=== PATIENT | female | born 1990 | race Caucasian/White ===

== ENCOUNTER → 2017-06-21 | Outpatient (CLI) | payer BC ==
[2017-06-21 13:41] LABS: ALBUMIN 3.7 GM/DL (3.2-5.2); ALBUMIN/GLOBULIN RATIO 1.06 (1.00-1.93); ALKALINE PHOSPHATASE 63 U/L (45-117); ALT/SGPT 34 U/L (12-78); ANION GAP 9 MEQ/L (8-16); AST/SGOT 20 U/L (15-37); BILIRUBIN,TOTAL 0.4 MG/DL (0.2-1.0); BLOOD UREA NITROGEN 11 MG/DL (7-18); CALCIUM LEVEL 8.8 MG/DL (8.5-10.1); CARBON DIOXIDE LEVEL 25 MEQ/L (21-32); CHLORIDE LEVEL 106 MEQ/L (98-107); CREATININE FOR GFR 0.87 MG/DL (0.55-1.02); GLOMERULAR FILTRATION RATE > 60.0 (>60); GLUCOSE, FASTING 85 MG/DL (70-105); MAGNESIUM LEVEL 2.1 MG/DL (1.8-2.4); POTASSIUM SERUM 4.2 MEQ/L (3.5-5.1); SODIUM LEVEL 140 MEQ/L (136-145); TOTAL PROTEIN 7.2 GM/DL (6.4-8.2)
== END ==
LOC: M WUC 10:51
PROVIDERS: ATTEND Family Medicine
DX: E87.5 Hyperkalemia (principal)

== ENCOUNTER 2018-05-24 12:37 | Emergency (ER) | payer MEDICAID, SELFPAY, BC ==
[2018-05-24 13:26] LABS: BASO # 0.1 10^3/uL (0.0-0.2); BASO % 0.9 % (0.0-1.0); EOS # 0.6 10^3/uL (0.0-0.50); EOS % 6.3 % (0.0-3.0); HEMATOCRIT 43.6 % (36.0-47.0); HEMOGLOBIN 15.6 g/dl (12.0-15.5); IMMATURE GRANULOCYTE % 0.7 % (0-3.0); LYMPH # 1.7 10^3/uL (1.5-6.5); LYMPH % 16.4 % (24.0-44.0); MEAN CORPUSCULAR HEMOGLOBIN 32.2 pg (27.0-33.0); MEAN CORPUSCULAR HGB CONC 35.8 g/dl (32.0-36.5); MEAN CORPUSCULAR VOLUME 90.1 fl (80.0-96.0); MONO # 0.6 10^3/uL (0.0-0.8); MONO % 6.2 % (0.0-5.0); NEUTROPHILS % 69.5 % (36.0-66.0); RED BLOOD COUNT 4.84 10^6/uL (4.00-5.40); RED CELL DISTRIBUTION WIDTH 11.5 % (11.5-14.5); WHITE BLOOD COUNT 10.1 10^3/uL (4.0-10.0)
[2018-05-24 13:46] LABS: ANION GAP 14 MEQ/L (8-16); BLOOD UREA NITROGEN 16 MG/DL (7-18); CALCIUM LEVEL 9.5 MG/DL (8.5-10.1); CARBON DIOXIDE LEVEL 20 MEQ/L (21-32); CHLORIDE LEVEL 106 MEQ/L (98-107); CPK CREATINE PHOSPHOKINASE 181 U/L (26-192); CREATININE FOR GFR 1.17 MG/DL (0.55-1.30); GLOMERULAR FILTRATION RATE 59.1 (>60); GLUCOSE, FASTING 90 MG/DL (70-100); POTASSIUM SERUM 3.9 MEQ/L (3.5-5.1); SODIUM LEVEL 140 MEQ/L (136-145); TROPONIN I < 0.02 NG/ML (< 0.10)
[2018-05-24 13:47] LABS: CK-MB VALUE MASS < 1.0 NG/ML (<3.6); MB/CK RELATIVE INDEX 0.55 (< OR =4)
[2018-05-24 13:53] LABS: PLATELET COUNT, AUTOMATED 277 10^3/uL (150-450); POS COUNT POS FLAG
[2018-05-24 14:24] LABS: INR 0.91; PROTHROMBIN TIME 12.3 SECONDS (12.1-14.4)
[2018-05-24 14:27] LABS: D-DIMER QUANT 579.1 ng/ml (<500)
[2018-05-24] MEDS ORDERED: ISOVUE-370 76% 100ML VIAL (Q9967) As Ordered ×2 (14:39)
[2018-05-24 14:48] LABS: FREE T4 1.09 NG/DL (0.76-1.46); MAGNESIUM LEVEL 1.5 MG/DL (1.8-2.4); PHOSPHORUS LEVEL 1.1 MG/DL (2.5-4.9); THYROID STIMULATING HORMONE 0.836 uIU/ML (0.358-3.740)
[2018-05-24] MEDS: NITROGLYCERIN 0.4 MG SUBL TABLET SL ×2 (15:26)
[2018-05-24 19:48] LABS: CPK CREATINE PHOSPHOKINASE 364 U/L (26-192); MB/CK RELATIVE INDEX 1.64 (< OR =4); TROPONIN I < 0.02 NG/ML (< 0.10)
== END 2018-05-24 21:18 | disposition home or self-care (01) ==
LOC: M ED 12:37
DX: R07.9 Chest pain, unspecified (principal); R06.02 Shortness of breath; M79.661 Pain in right lower leg; M79.662 Pain in left lower leg; I10 Essential (primary) hypertension; I25.2 Old myocardial infarction; I47.1 Supraventricular tachycardia; Z77.098 Contact with and (suspected) exposure to other hazardous, chiefly nonmedicinal, chemicals
CPT/HCPCS: Q9967

== ENCOUNTER → 2018-09-17 | Outpatient (REF) | payer OTHER | LOC: M WUC 09:47 | DX: N30.01 Acute cystitis with hematuria (principal) ==

== ENCOUNTER → 2019-12-15 | Outpatient (REF) | payer BC ==
[~2019-12-15] MED LIST: LEVO0.1T PO; METO1TAB32 PO; NITR0.4S14 SL
== END ==
LOC: M PLALAB 15:52
PROVIDERS: ATTEND Obstetrics & Gynecology
DX: Z34.82 Encounter for supervision of other normal pregnancy, second trimester (principal); Z3A.27 27 weeks gestation of pregnancy
CPT/HCPCS: 36415; 86850; 86901; J2790

== ENCOUNTER 2020-02-06 13:20 | Outpatient (CLI) | payer BC ==
[~2020-02-06] VITALS: Ht 157.5 cm; Wt 89.9 kg
[2020-02-06 13:47] VITALS: BP 108/67
[2020-02-06] MEDS ORDERED: LACTATED RINGER'S 1000 ML IV ONE (14:00)
[2020-02-06] MEDS ORDERED: LR 1,000 ML IV SCH (14:00)
[2020-02-06 15:06] LABS: APPEARANCE, URINE CLEAR (CLEAR); BACTERIA, URINE AUTO 1+ (NEGATIVE); BILIRUBIN, URINE AUTO NEGATIVE (NEGATIVE); BLOOD, URINE BLOOD NEGATIVE (NEGATIVE); COLOR, URINE YELLOW (YELLOW); GLUCOSE, URINE (UA) AUTO NEGATIVE (NEGATIVE); KETONE, URINE AUTO TRACE mg/dL (NEGATIVE); LEUKOCYTE ESTERASE, URINE AUTO NEGATIVE (NEGATIVE); MUCUS, URINE SMALL (NEGATIVE); NITRITE, URINE AUTO NEGATIVE (NEGATIVE); PROTEIN, URINE AUTO NEGATIVE (NEGATIVE); RBC, URINE AUTO 1 /HPF (0-3); SPECIFIC GRAVITY URINE AUTO 1.013 (1.002-1.035); SQUAMOUS EPITHELIAL CELL UR AU 1 /HPF (0-6); UROBILINOGEN, URINE AUTO 0.2 mg/dL (0.0-2.0); WBC, URINE AUTO 1 /HPF (0-3)
[2020-02-06] MEDS ORDERED: NITROFURANTOIN (MACROBID) 100 MG CAP PO SCH (16:00)
== END 2020-02-06 18:10 | disposition home or self-care (01) ==
LOC: M LDO 13:20
PROVIDERS: ATTEND Advanced Practice Midwife
DX: O47.03 False labor before 37 completed weeks of gestation, third trimester (principal); O23.43 Unspecified infection of urinary tract in pregnancy, third trimester; Z3A.35 35 weeks gestation of pregnancy
CPT/HCPCS: 59025; 81001; 87086; G0378; G0463

== ENCOUNTER → 2020-02-06 | Outpatient (REF) | payer BC | LOC: M SFHCWAGY 16:55 | PROVIDERS: ATTEND Advanced Practice Midwife | DX: Z34.03 Encounter for supervision of normal first pregnancy, third trimester (principal) ==

== ENCOUNTER 2020-02-28 12:41 | Inpatient (IN) | payer BC ==
[~2020-02-28] VITALS: Ht 157.5 cm; Wt 91.7 kg
[2020-02-28] VITALS (32 sets, daily range): BP systolic 82–127; BP diastolic 45–72
[2020-02-28] MEDS ORDERED: OMEP10CASR PO (13:12)
[2020-02-28] MEDS ORDERED: L-LY500T14 PO (13:12)
[2020-02-28] MEDS ORDERED: PRENTAB9 PO (13:12)
[2020-02-28] MEDS ORDERED: PENICILLIN G POTASSIUM IV 5 MU in D5W MINI-BAG PLUS 100 ML IV STA (13:34)
[2020-02-28 14:14] LABS: HEMATOCRIT 40.8 % (36.0-47.0); HEMOGLOBIN 14.3 g/dl (12.0-15.5); MEAN CORPUSCULAR HEMOGLOBIN 31.8 pg (27.0-33.0); MEAN CORPUSCULAR VOLUME 90.7 fl (80.0-96.0); PLATELET COUNT, AUTOMATED 232 10^3/uL (150-450); WHITE BLOOD COUNT 11.7 10^3/uL (4.0-10.0)
[2020-02-28] MEDS ORDERED: fentaNYL 100 MCG/2 ML INJECTION (J3010) As Ordered ONE (16:01)
[2020-02-28] MEDS ORDERED: FENTANYL 2MCG/ML ROPIVACAINE 0.2% IN 0.9% NACL 100ML IVBAG As Ordered ONE (16:03)
[2020-02-28] MEDS ORDERED: diphenhydrAMINE 50MG/ML VIAL (J1200) IV PRN (17:15)
[2020-02-28] MEDS ORDERED: EPIDURAL/PCA KEYS XX PRN (17:15)
[2020-02-28] MEDS ORDERED: ePHEDrine SULFATE 25 MG/5 ML(5MG/ML) SYRINGE IV PRN (17:15)
[2020-02-28] MEDS ORDERED: REFRIGERATOR IV KEYS XX PRN (17:15)
[2020-02-28] MEDS ORDERED: EPIDURAL COMMENT XX SCH (17:15)
[2020-02-28] MEDS ORDERED: ONDANSETRON 4MG/2ML VIAL IV PRN (17:15)
[2020-02-28] MEDS ORDERED: NALOXONE INJ 0.4MG/1ML VIAL (J2310 PER 1MG) IV PRN (17:15)
[2020-02-28] MEDS ORDERED: FENTANYL/ROPIVACAINE/NACL BAG 100 ML EPIDURAL SCH (17:15)
[2020-02-28] MEDS ORDERED: LACTATED RINGER'S 1000 ML IV PRN (17:15)
--- NOTE | 2020-02-28 17:51 | HPEPDOC ---
Obstetrical History & Physical General Date of Admission February 28, 2020 at 13:29 History of Present Illness By her last history. Confirmed by first trimester ultrasound with complaints of leakage of fluid. She reports active movements. Denies any vaginal bleeding, has had some contractions. Her course is been unremarkable. 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 History: No pertinent history Past Medical History Surgical History: Denies/None Social History Marital Status: Family situation: Spouse/partner home Psychosocial History: No pertinent psych hx * Smoker: non-smoker Alcohol: Denies Drugs: denies Allergies Coded Allergies: No Known Allergies (Unverified , 05/24/18) Medications Scheduled Lysine (l-Lysine) 500 Mg Tablet, 1,000 MG PO DAILY Metoprolol Succinate (Metoprolol Succinate) 25 Mg Tab, 1 TAB PO DAILY Omeprazole (Omeprazole) 10 Mg Capsule.dr, 25 MG PO DAILY No.137/Iron/Folic Acd ( Vitamin Tablet) 1 Each Tablet, 1 TAB PO DAILY Physical Examination Physical Examination GENERAL: Alert and oriented times three. BREAST: . ABDOMEN: Gravid and non-tender to touch. FETUS: Is vertex (VTX) by sterile vaginal examination (SVE), fetus is vertex (VTX) by Derrell. HEART RATE: Regular rate and rhythm. LUNGS: Clear to auscultation (CTA). Vital Signs/I&O Vital Signs Date Time Temp Pulse Resp B/P (MAP) Pulse Ox O2 Delivery O2 Flow Rate FiO2 02/28/20 13:00 97.8 82 18 118/71 (87) Laboratory Data 24H LABS Laboratory Tests 2 02/28/20 13:54: Nucleated Red Blood Cells % (auto) 0.0 CBC/BMP Laboratory Tests 02/28/20 13:54 Pertinent Laboratoy Data Blood Type: O- RBC Antibody Screen: Negative HIV: Negative Hepatitis B: Negative Hepatitis C: Negative Rapid Plasma Reagin: Nonreactive Rubella: Immune Chlamydia/Gonorrhea: Negative Group B Streptococcus: Negative Glucose Tolerance Test: 100 Vaginal Examination Dilation: 3 cm Effacement: 80% Station: -2 Cervical Consistency: Soft Cervical Position: Anterior Presentation: Cephalic presentation Assessment Heart Rate (FHR): 130 Variability: Moderate Accelerations: Positive Tocometer Contractions: Yes Frequency: regular Assessment/Plan Assessment 29-year-old 1 at 38 weeks 3 days estimate gestational age with spontaneous rupture of membranes. Grossly ruptured. Reassuring status. -Admit to labor and delivery, CBC, RPR, type and screen -Patient is a good candidate for an epidural. -Anticipate spontaneous vaginal delivery Plan Admit and orient. Field Superintendent and consent. Group B Streptococcus (GBS) negative. Labs and intravenous (IV) per unit protocol. Anticipate normal spontaneous delivery (). C-S as appropriate. LUIS MARTINEZ MD. February 28, 2020 17:50
[2020-02-28] MEDS ORDERED: PENICILLIN G POTASSIUM IV 2.5 MU in IV 1 EA IV SCH (18:00)
[2020-02-28] MEDS ORDERED: OXYTOCIN 30 UNITS IN 0.9% NaCl 500ML IV BAG (J2590) As Ordered ONE (21:39)
[2020-02-29] VITALS (10 sets, daily range): BP systolic 101–132; BP diastolic 56–70
[2020-02-29] MEDS ORDERED: FENTANYL 2MCG/ML ROPIVACAINE 0.2% IN 0.9% NACL 100ML IVBAG As Ordered ONE (00:33)
--- NOTE | 2020-02-29 01:44 | IPNPDOC ---
Obstetrical Progress Note Date of Service February 29, 2020 Subjective 29-year-old 1, pushing for approximately 2 hours. There is no further descent. Currently category 1 heart rate tracing. Patient expressed motivation to continue to push. Her exam complete, complete and 0 station. Objective Vital Signs Date Time Temp Pulse Resp B/P (MAP) Pulse Ox O2 Delivery O2 Flow Rate FiO2 02/29/20 01:24 96.9 02/28/20 22:36 93 19 107/57 (74) Sterile Vaginal Examination Dilation: complete Effacement (%): 100% Station: +1 Assessment and Plan Age: 29 : 1 Status: Reassuring Anticipate: Other (plan to reevaluate patient 1 hour. Plan to proceed with the section. There is no further descent for arrested descent.) LUIS MARTINEZ MD. February 29, 2020 01:44
[2020-02-29] MEDS ORDERED: AZITHROMYCIN INJ 500MG VIAL (J0456 PER 500MG) As Ordered ONE (01:57)
[2020-02-29] MEDS ORDERED: BICITRA 30ML SOLN UDC As Ordered ONE (01:57)
[2020-02-29] MEDS ORDERED: ceFAZolin 2 GM/D5W 50 ML IV BAG (J0690 PER 500MG) As Ordered ONE (01:57)
[2020-02-29] MEDS ORDERED: AZITHROMYCIN INJ 500 MG, VIAL MATE ADAPTER 1 EACH in D5W 250 ML IV ONE (02:00)
[2020-02-29] MEDS ORDERED: ceFAZolin SOD 2 GM in IV 1 EA IV ONE (02:00)
[2020-02-29] MEDS ORDERED: BICITRA 30ML SOLN UDC PO ONE (02:00)
[2020-02-29] MEDS ORDERED: LIDOCAINE 2% W/EPIN INJ 20ML **PRES FREE As Ordered ONE (02:15)
[2020-02-29] MEDS ORDERED: fentaNYL 100 MCG/2 ML INJECTION (J3010) As Ordered ONE (02:17)
[2020-02-29] MEDS ORDERED: OXYTOCIN INJ 10 UNITS/ML VIAL (J2590) As Ordered ONE (02:17)
[2020-02-29] MEDS ORDERED: ONDANSETRON 4MG/2ML VIAL As Ordered ONE (02:20)
[2020-02-29] MEDS ORDERED: PHENYLephrine HCL 500 MCG/5 ML (100MCG/ML) SYRINGE (J2370) As Ordered ONE (02:44)
[2020-02-29] MEDS ORDERED: NALOXONE INJ 0.4MG/1ML VIAL (J2310 PER 1MG) IV PRN ×2 (03:25)
[2020-02-29] MEDS ORDERED: METOCLOPRAMIDE INJ 10MG/2ML VIAL (J2765 PER 1) IV PRN ×2 (03:25→04:00)
[2020-02-29] MEDS ORDERED: NALBUPHINE HCL 10 MG/ML AMP (J2300) IV PRN ×2 (03:25→04:00)
[2020-02-29] MEDS ORDERED: ONDANSETRON 4MG/2ML VIAL IV PRN ×3 (03:25→04:00)
[2020-02-29] MEDS ORDERED: diphenhydrAMINE 50MG/ML VIAL (J1200) IV PRN (03:25)
[2020-02-29] MEDS ORDERED: OXYTOCIN DRIP 30 UNITS in IV 1 EA IV SCH (03:35)
[2020-02-29] MEDS ORDERED: LR 1,000 ML IV SCH ×2 (03:35→04:00)
[2020-02-29] MEDS ORDERED: RHOGAM 300 MCG (1500 IU) INJ (J2790) IM SCH (03:45)
[2020-02-29] MEDS ORDERED: MEASLES,MUMPS,RUBELLA VACCINE INJ (MMR-II) (90707) SC SCH (03:45)
[2020-02-29] MEDS ORDERED: MOM 30ML SUSPENSION UDC PO PRN (03:45)
[2020-02-29] MEDS ORDERED: PERCOCET 5MG/325MG TAB PO PRN ×3 (03:45→04:00)
--- NOTE | 2020-02-29 03:46 | ROOPDOC ---
[facility] Report Of Operation Report of Operation DATE OF PROCEDURE: 02/29/20 SURGEON: Patsy Cornell M.D. TUBE CLEANING OPERATOR: Leonora Stewart CNM ANESTHESIA: Epidural PREOPERATIVE DIAGNOSIS:, Arrest of descent DIAGNOSIS: Arrested descent ESTIMATED BLOOD LOSS: 600 mL URINE OUTPUT: 100 mL INTRAVENOUS FLUIDS: 1700 mL PREOPERATIVE ANTIBIOTICS:. 2 g of Ancef and 500 mg of azithromycin OPERATIVE FINDINGS: Liveborn female infant, Apgars 8 and 9. Weight was 3350 g, 7 lbs. 6 oz. SPECIMENS:. Cord blood INDICATIONS FOR PROCEDURE: This patient is a 29-year-old 1, para 0 who presented in active labor. She progressed and began pushing at complete, complete, -1 station. She pushed for over 2 hours, had made minimal descent, was counseled for section for arrested descent DESCRIPTION OF PROCEDURE: After informed consent was obtained and written consent was reviewed. The patient was brought to the operating room where. She was then placed in the supine position with a left lateral tilt. Leyva catheter was placed and to gravity previously. Patient was then prepped and draped in the normal sterile fashion. A timeout operating room was performed identifying the patient, procedure be performed as well as drug allergies. Anesthesia was tested and deemed to be adequate. Pfannenstiel skin incision was made and this was carried down to the underlying rectus fascia. The fascia was then scored and this incision was extended bilaterally. The fascia was then dissected off the underlying rectus muscle superiorly and inferiorly. The rectus muscles were then in the midline. The peritoneum is then entered. Vesicouterine peritoneum was then tented and excised and a bladder flap was created. Mobius retractor was then placed. Next, a curvilinear incision was then made in the lower uterine segment. Amniotomy was performed, productive, clear fluid. The head was brought to the level of the incision atraumatically and delivered along the shoulders and corpus. The cord was clamped 2. The was brought over to the warmer with a good cry. Placenta was drained and delivered grossly intact. The uterus was cleared of all clots and debris and the uterine incision was then closed in 2 layers using 0 Vicryl, first in a running locking fashion followed by second layer for imbrication. The abdomen suctioned. Surgical sites reinspected and noted be hemostatic. The retractor was then removed. The anterior peritoneum was then reapproximated with 3-0 Vicryl. The rectus muscles were reapproximated 3-0 Vicryl. The fascia was then closed using 0 Vicryl in a running nonlocking fashion. The subcutaneous tissues was then irrigated and suctioned. Subcutaneous tissue was reapproximated using 3-0 Vicryl. Several subdermal stitch is placed using 3-0 Vicryl and the skin was closed with 4-0 Monocryl. This incision was then cleaned and dried and was dressed. The patient was then taken to recovery in stable condition. All counts were correct. The couple has decided to name the daughter, Renee My surgical supplies sterilizer Leonora Stewart played in an essential roll during the operation. They assisted with tissue identification retraction, delivery of the , as well as wound closure. PATSY CORNELL MD. February 29, 2020 03:46
[2020-02-29] MEDS ORDERED: fentaNYL 100 MCG/2 ML INJECTION (J3010) IV PRN (04:00)
[2020-02-29] MEDS: MEPERIDINE INJ 25 MG/ML VIAL (J2175) IV PRN ×2 (04:02→04:08)
[2020-02-29] MEDS ORDERED: MEPERIDINE INJ 25 MG/ML VIAL (J2175) As Ordered ONE (04:02)
[2020-02-29] MEDS ORDERED: OXYTOCIN 30 UNITS IN 0.9% NaCl 500ML IV BAG (J2590) As Ordered ONE (04:15)
[2020-02-29] MEDS ORDERED: KETOROLAC 30 MG/ML 1ML VIAL As Ordered ONE (04:21)
[2020-02-29] MEDS: KETOROLAC 30 MG/ML 1ML VIAL IV SCH ×3 (04:24→16:18)
[2020-02-29] MEDS: DOCUSATE SODIUM 100 MG CAP PO SCH ×2 (08:30→20:11)
[2020-02-29] MEDS: PRENATAL VITAMINS CHEWABLE TABLET PO SCH (08:30)
[2020-02-29] MEDS: IBUPROFEN 800 MG TAB PO SCH (23:04)
[2020-03-01 02:00] VITALS: BP 111/56
[2020-03-01 06:28] VITALS: BP 116/58
[2020-03-01] MEDS ORDERED: IBUP80TA PO (07:08)
[2020-03-01] MEDS ORDERED: PERCOCET PO (07:08)
[2020-03-01] MEDS: DOCUSATE SODIUM 100 MG CAP PO SCH ×2 (07:36→21:28)
[2020-03-01] MEDS: PRENATAL VITAMINS CHEWABLE TABLET PO SCH (07:36)
[2020-03-01] MEDS: IBUPROFEN 800 MG TAB PO SCH ×2 (07:37→15:38)
[2020-03-01 07:52] LABS: HEMATOCRIT 29.4 % (36.0-47.0); MEAN CORPUSCULAR HEMOGLOBIN 32.6 pg (27.0-33.0); MEAN CORPUSCULAR HGB CONC 34.7 g/dl (32.0-36.5); MEAN CORPUSCULAR VOLUME 93.9 fl (80.0-96.0); PLATELET COUNT, AUTOMATED 177 10^3/uL (150-450); RED BLOOD COUNT 3.13 10^6/uL (4.00-5.40); WHITE BLOOD COUNT 13.2 10^3/uL (4.0-10.0)
--- NOTE | 2020-03-01 07:54 | IPNPDOC ---
Progress Note Date of Service: March 01, 2020 Day#: 1 Progress Note SUBJECT: Doing well without complaints. Ambulating, voiding and pain is well-c ontrolled. Reports minimal lochia. +breast feeding OBJECTIVE: VITAL SIGNS: Within normal limits, afebrile. Alert and oriented times three. Abdomen: Fundus firm at U-2. Soft, NTTP. Incision: Clean, dry, intact dressed Ext: neg calf tenderness. ASSESSMENT: day/postoperative #1 status post primary section for arrested descent. Recovering in stable condition. PLAN: 1. Continue routine care/postoperative care 2. Discharge plans for tomorrow VS, I&O, 24H, Fishbone Vital Signs/I&O Vital Signs Date Time Temp Pulse Resp B/P (MAP) Pulse Ox O2 Delivery O2 Flow Rate FiO2 03/01/20 06:28 98.0 87 16 116/58 (77) 03/01/20 02:00 100 Room Air I&O- Last 24 Hours up to 6 AM 03/01/20 06:00 Intake Total 100 ml Output Total 1300 ml Balance -1200 ml Laboratory Data 24H LABS Laboratory Tests 2 03/01/20 01:23: Serology Scanned Report Hepatitis B Testing CBC/BMP LUIS MARTINEZ MD. March 01, 2020 07:54
[2020-03-01 08:02] LABS: HEMOGLOBIN 10.2 g/dl (12.0-15.5)
[2020-03-01 10:16] VITALS: BP 93/54
[2020-03-01 14:02] VITALS: BP 98/66
[2020-03-01 17:36] VITALS: BP 106/69
[2020-03-02] MEDS: IBUPROFEN 800 MG TAB PO SCH ×2 (00:25→08:09)
[2020-03-02] MEDS: ONDANSETRON 4 MG TAB PO PRN ×2 (03:14→08:59)
[2020-03-02 06:00] VITALS: BP 110/68
[2020-03-02] MEDS: PRENATAL VITAMINS CHEWABLE TABLET PO SCH (08:09)
[2020-03-02] MEDS: DOCUSATE SODIUM 100 MG CAP PO SCH (08:09)
[2020-03-02] MEDS ORDERED: ONDA-83 PO (10:41)
== END 2020-03-02 12:40 | disposition home or self-care (01) | DRG 540 ==
LOC: M LDO 12:41 → M LDI 13:29 → M OBS 02-29 05:26
PROVIDERS: ADMIT Obstetrics & Gynecology; ATTEND Obstetrics & Gynecology
PROC: 10D00Z1 Extraction of Products of Conception, Low, Open Approach (ICD-10-PCS; principal; 2020-02-29 03:06)
DX: O32.4XX0 Maternal care for high head at term, not applicable or unspecified (principal); Z37.0 Single live birth; Z3A.39 39 weeks gestation of pregnancy

== ENCOUNTER → 2020-10-04 | Outpatient (CLI) | payer BC ==
[~2020-10-04] MED LIST changes: +IBUP80TA PO; +L-LY500T14 PO; +OMEP10CASR PO; +ONDA-83 PO; +PERCOCET PO; +PRENTAB9 PO
[2020-10-04 17:10] LABS: BASO # 0.1 10^3/uL (0.0-0.2); BASO % 0.6 % (0.0-1.0); EOS # 0.5 10^3/uL (0.0-0.5); EOS % 6.2 % (0.0-3.0); HEMATOCRIT 38.9 % (36.0-47.0); HEMOGLOBIN 12.9 g/dl (12.0-15.5); LYMPH # 1.4 10^3/uL (1.5-5.0); LYMPH % 16.6 % (24.0-44.0); MEAN CORPUSCULAR HEMOGLOBIN 30.5 pg (27.0-33.0); MEAN CORPUSCULAR HGB CONC 33.2 g/dl (32.0-36.5); MONO # 0.5 10^3/uL (0.0-0.8); MONO % 6.2 % (0.0-5.0); NEUTROPHILS # 5.8 10^3/uL (1.5-8.5); PLATELET COUNT, AUTOMATED 253 10^3/uL (150-450); RED BLOOD COUNT 4.23 10^6/uL (4.00-5.40); WHITE BLOOD COUNT 8.2 10^3/uL (4.0-10.0)
[2020-10-04 18:19] LABS: HEPATITIS C VIRUS ABY INDEX 0.1 INDEX (<0.8); HIV 1&2 SCREEN CENTAUR NEGATIVE (NEGATIVE)
== END ==
LOC: M PLALAB 15:32
PROVIDERS: ATTEND Advanced Practice Midwife
DX: Z34.81 Encounter for supervision of other normal pregnancy, first trimester (principal); I47.1 Supraventricular tachycardia

== ENCOUNTER → 2020-10-18 | Outpatient (CLI) | payer BC ==
--- NOTE | 2020-10-18 15:10 | REP ---
INDICATION: O46.8X2 OTHER ANTEPARTUM HEMORRHAGE,SECOND TRIMESTER COMPARISON: None. TECHNIQUE: Transabdominal obstetrical ultrasound with color Doppler evaluation. FINDINGS: Examination demonstrates a single live intrauterine . motion is identified by technologist. Placenta is noted anteriorly and grade 0 without evidence for placenta previa or abruption. Amniotic fluid volume is normal. Cervix measures 3.1 cm in length and appears closed. Gestational age by LMP 14 weeks 3 days with DINORAH 04/15/2021. FHR equals 158 beats per minute. IMPRESSION: Single live intrauterine . <Electronically signed by Joni Tay > 10/18/20 [id number]
== END ==
LOC: M WHC 14:28
PROVIDERS: ATTEND Advanced Practice Midwife
DX: O41.8X20 Other specified disorders of amniotic fluid and membranes, second trimester, not applicable or unspecified (principal); O46.8X2 Other antepartum hemorrhage, second trimester; Z3A.14 14 weeks gestation of pregnancy

== ENCOUNTER → 2020-12-20 | Outpatient (CLI) | payer BC ==
--- NOTE | 2020-12-20 17:01 | REP ---
INDICATION: ANATOMY COMPARISON: 10/18/2020 TECHNIQUE: Transabdominal obstetrical ultrasound with color Doppler evaluation. FINDINGS: Examination demonstrates a single live intrauterine in cephalic presentation. motion is identified by technologist. Placenta is noted anterior and grade 0 without evidence for placenta previa or abruption. Amniotic fluid volume is normal. Cervix measures 3.2 cm in length and appears closed. There is eccentric insertion of the placental cord noted. Gestational age by LMP and 1st ultrasound 23 weeks 3 days with DINORAH 04/15/2021. Gestational age by current measurements 24 weeks 3 days with DINORAH 04/08/2021. FHR equals 158 beats per minute. BPD: 5.8 cm at there is 23 weeks 6 days HC: 22.1 cm at 24 weeks 1 day AC: 21.2 cm at 25 weeks 5 days FL: 4.3 cm at 24 weeks 1 day HL: 4.1 cm at 24 weeks 4 days HC/AC: 1.04 Estimated weight 747 grams (greater than 97th percentile based on age by LMP and 1st ultrasound). Anatomical assessment demonstrates normal structures including cranium, choroid plexus, cavum, cerebellum/posterior fossa, facial features, lungs, four-chamber heart/ventricular outflow tracts, diaphragm, stomach, cord insertion/three-vessel cord, kidneys/bladder, spine, and extremities. IMPRESSION: 1. Single live intrauterine in cephalic presentation. 2. Estimated weight beyond 97th percentile based on age by LMP and 1st ultrasound. 3. Eccentric cord insertion to the placenta. 4. anatomical assessment is complete and normal. <Electronically signed by Joni Tay > 12/20/20 [id number]
== END ==
LOC: M WHC 14:52
PROVIDERS: ATTEND Advanced Practice Midwife
DX: O34.211 Maternal care for low transverse scar from previous cesarean delivery (principal); Z3A.23 23 weeks gestation of pregnancy

== ENCOUNTER → 2021-01-13 | Outpatient (REF) | payer BC ==
[2021-01-13 17:27] LABS: HEMATOCRIT 36.3 % (36.0-47.0); HEMOGLOBIN 12.4 g/dl (12.0-15.5); MEAN CORPUSCULAR HEMOGLOBIN 32.7 pg (27.0-33.0); MEAN CORPUSCULAR HGB CONC 34.2 g/dl (32.0-36.5); MEAN CORPUSCULAR VOLUME 95.8 fl (80.0-96.0); PLATELET COUNT, AUTOMATED 220 10^3/uL (150-450); RED BLOOD COUNT 3.79 10^6/uL (4.00-5.40); WHITE BLOOD COUNT 9.1 10^3/uL (4.0-10.0)
== END ==
LOC: M PLALAB 13:20
PROVIDERS: ATTEND Advanced Practice Midwife
DX: O34.211 Maternal care for low transverse scar from previous cesarean delivery (principal)

== ENCOUNTER → 2021-02-10 | Outpatient (REF) | payer BC | LOC: M PLALAB 17:14 | PROVIDERS: ATTEND Advanced Practice Midwife | DX: O34.211 Maternal care for low transverse scar from previous cesarean delivery (principal) ==

== ENCOUNTER → 2021-02-22 | Outpatient (CLI) | payer BC | LOC: M WHC 13:29 | PROVIDERS: ATTEND Obstetrics & Gynecology | DX: O26.849 Uterine size-date discrepancy, unspecified trimester (principal) ==

== ENCOUNTER → 2021-03-10 | Outpatient (REF) | payer BC ==
[~2021-03-10] MED LIST changes: +ACET-897 PO; +LABE100T4 PO; +OMEP1CAP73 PO; +VALT500T PO; +[UNRECOGNIZED DRUG - CODE] PO
== END ==
LOC: M SFHCWAGY 09:52
PROVIDERS: ATTEND Advanced Practice Midwife
DX: Z34.93 Encounter for supervision of normal pregnancy, unspecified, third trimester (principal); Z3A.35 35 weeks gestation of pregnancy

== ENCOUNTER 2021-03-16 21:14 | Inpatient (IN) | payer BC ==
[~2021-03-16] VITALS: Ht 172.7 cm; Wt 92.3 kg
[~2021-03-16 21:14] MED LIST changes: -ACET-897 PO; +KETOROLAC 30 MG/ML 1ML VIAL IV SCH; -LABE100T4 PO; -OMEP1CAP73 PO; -VALT500T PO; -[UNRECOGNIZED DRUG - CODE] PO
[2021-03-16] MEDS ORDERED: LACTATED RINGER'S 1000 ML IV STA (21:35)
[2021-03-16] MEDS ORDERED: AZITHROMYCIN INJ 500 MG, VIAL MATE ADAPTER 1 EACH in NS 250 ML IV ONE (21:35)
[2021-03-16] MEDS ORDERED: LR 1,000 ML IV SCH ×3 (21:35→23:20)
[2021-03-16] MEDS ORDERED: ceFAZolin SOD 2 GM in IV 1 EA IV ONE (21:35)
[2021-03-16] MEDS ORDERED: BICITRA 30ML SOLN UDC PO ONE (21:35)
[2021-03-16] MEDS ORDERED: BETAMETHASONE SOLUSPAN 6MG/ML 5ML VIAL (J0702 PER 3MG) IM ONE (21:45)
[2021-03-16] MEDS ORDERED: OXYTOCIN 30 UNITS IN 0.9% NaCl 500ML IV BAG (J2590) As Ordered ONE ×2 (21:49→23:28)
[2021-03-16] MEDS ORDERED: MORPHINE PRES-FREE INJ 10 MG/10 ML VIAL (J2274) As Ordered ONE (21:49)
[2021-03-16] MEDS ORDERED: ePHEDrine SULFATE 25 MG/5 ML(5MG/ML) SYRINGE As Ordered ONE ×2 (21:49→22:23)
[2021-03-16 21:51] LABS: HEMATOCRIT 38.8 % (36.0-47.0); HEMOGLOBIN 13.7 g/dl (12.0-15.5); MEAN CORPUSCULAR HEMOGLOBIN 32.2 pg (27.0-33.0); MEAN CORPUSCULAR HGB CONC 35.3 g/dl (32.0-36.5); MEAN CORPUSCULAR VOLUME 91.3 fl (80.0-96.0); PLATELET COUNT, AUTOMATED 211 10^3/uL (150-450); RED BLOOD COUNT 4.25 10^6/uL (4.00-5.40); WHITE BLOOD COUNT 12.3 10^3/uL (4.0-10.0)
[2021-03-16] MEDS ORDERED: NALOXONE INJ 0.4MG/1ML VIAL (J2310 PER 1MG) IV PRN ×2 (22:16)
[2021-03-16] MEDS ORDERED: METOCLOPRAMIDE INJ 10MG/2ML VIAL (J2765 PER 1) IV PRN (22:16)
[2021-03-16] MEDS ORDERED: NALBUPHINE HCL 10 MG/ML AMP (J2300) IV PRN (22:16)
[2021-03-16] MEDS ORDERED: ONDANSETRON 4MG/2ML VIAL IV PRN ×2 (22:16→23:15)
[2021-03-16] MEDS ORDERED: PHENYLephrine 500MCG 5ML (100MCG/ML) SYRINGE As Ordered ONE ×2 (22:21→22:24)
[2021-03-16] MEDS ORDERED: ONDANSETRON 4MG/2ML VIAL As Ordered ONE (22:26)
[2021-03-16] MEDS ORDERED: METOCLOPRAMIDE INJ 10MG/2ML VIAL (J2765 PER 1) As Ordered ONE (22:26)
[2021-03-16] MEDS ORDERED: KETOROLAC 60MG 2ML VIAL As Ordered ONE (22:49)
--- NOTE | 2021-03-16 23:01 | HPE ---
HISTORY AND PHYSICAL DATE OF ADMISSION: 03/16/2021 HISTORY OF PRESENT ILLNESS: Nely is a 30-year-old, 2, para 1-0-0-1 at 35 and 6/7 weeks gestation, EDC of 04/14/2021 based on last menstrual period and confirmed by first trimester ultrasound. She presents to labor and delivery today with report of contractions that started earlier in the day and have become progressively more uncomfortable and close together. She reports them every 4 minutes. Denies vaginal bleeding or leakage of fluid. The fetus has been active. Her care was initiated at [facility] in the first trimester. course complicated by paroxysmal supraventricular tachycardia. She does take Labetalol 100 mg b.i.d. She has a history of a prior section for arrest of decent with planned repeat section. migraine headaches, HSV oral. PAST OBSTETRIC HISTORY: February 2020; 38 and 4/7 weeks, 7 pounds and 6 ounce female, section due to OP presentation and arrest of decent. OBSTETRIC LABS: O negative. Antibody screen negative. Syphilis negative. Gonorrhea and Chlamydia negative. Hepatitis B negative. Hepatitis C negative. Rubella immune. Urine culture negative. GBS negative. Gestational diabetic screening normal. PAST MEDICAL HISTORY: Includes tachycardia, hypertension, benign PCOS and oral herpes. PAST SURGICAL HISTORY: section. FAMILY HISTORY: Bladder cancer and heart disease. SOCIAL HISTORY: She is a nonsmoker, denies alcohol and drug use. Denies history of STDs. Denies history of abuse; physical, sexual and emotional. ALLERGIES: Bee venom causes anaphylaxis. OBJECTIVE: VITAL SIGNS: Blood pressure 110/70, heart rate 150 with moderate variability, positive accelerations, negative decelerations. Contractions every 2 minutes, they do palpate strong. STERILE VAGINAL EXAM: 4 cm dilated, 80% effaced, -2 station. bulging bag of water. Temperature 97.9, pulse 75, respirations 18. ASSESSMENT: Intrauterine at 35 and 6/7 weeks. heart rate care growing while in active labor. PLAN: Admit the patient to labor and delivery. Routine laboratories. I.V. antibiotics for surgical prophylaxis. Patient has been consented for surgery and blood products if they are necessary. Dr. Huertas notified and present in the hospital. Anesthesia as well as neonatology notified. MELITA
[2021-03-16] MEDS ORDERED: MEPERIDINE INJ 25 MG/ML VIAL (J2175) IV PRN (23:15)
[2021-03-16] MEDS ORDERED: fentaNYL 100 MCG/2 ML INJECTION (J3010) IV PRN (23:15)
[2021-03-16] MEDS ORDERED: RHOGAM 300 MCG (1500 IU) INJ (J2790) IM SCH (23:20)
[2021-03-16] MEDS ORDERED: MEASLES,MUMPS,RUBELLA VACCINE INJ (MMR-II) (90707) SC SCH (23:20)
[2021-03-16] MEDS ORDERED: PERCOCET 5MG/325MG TAB PO PRN ×2 (23:20)
[2021-03-16] MEDS ORDERED: OXYTOCIN DRIP 30 UNITS in IV 1 EA IV SCH (23:20)
[2021-03-16] MEDS ORDERED: MOM 30ML SUSPENSION UDC PO PRN (23:20)
[2021-03-16] MEDS ORDERED: SIMETHICONE 80MG CHEW TAB PO PRN (23:20)
[2021-03-17] VITALS (9 sets, daily range): BP systolic 94–120; BP diastolic 48–70
[2021-03-17] MEDS: diphenhydrAMINE 50MG/ML VIAL (J1200) IV PRN ×2 (01:24→05:24)
--- NOTE | 2021-03-17 02:14 | CR.PDOC ---
General Date of Consultation: March 17, 2021 Consultation REASON FOR CONSULTATION/CHIEF COMPLAINT: Unresponsive HISTORY OF PRESENT ILLNESS: 30-year-old female with a past medical history of SVT, delivered via at 35 weeks on 03/16/21. Patient was found to be unresponsive for total period of 4 minutes divided increments of 2 minutes. P atient's vitals remained stable. Was called by Dr. Krishnamurthy from the department of anesthesia to consult on the patient. Patient has no memory of the events other than the sternal rub, she experienced to be woken up. Patient states that these episodes have been happening since last July and has been worked up extensively at [facility] neurology. Since then the patient has an followed by cardiology in [place] minutes completed a Holter study. She has an appointment coming up in April with an costume specialist. At the time of examination, patient is alert and oriented 3, is not expressing any chest pain, shortness of breath, palpitations, nausea, vomiting, diarrhea. ALLERGIES: Please see below. HOME MEDICATIONS: Please see below. PAST MEDICAL HISTORY: SVT HYPERTENSION, BENIGN POLYCYSTIC OVARIES HSV II PAST SURGICAL HISTORY: section x 2 FAMILY HISTORY: FATHER: HEART DISEASE MATERNAL GRAND MOTHER: BLADDER CANCER HORMONE BASED SEIZURES, HEART DISEASE SOCIAL HISTORY: Patient denies smoking Patient denies etoh use Patient denies illicit drug use REVIEW OF SYSTEMS: 10 point ROS completed, relevant findings are noted in the HPI. PHYSICAL EXAMINATION: VITAL SIGNS: please see below General: NAD, comfortable HEENT: PERRLA, EOMI, sclerae clear Neck: supple, normal ROM, no JVD Respiratory: lungs CTAB, no wheeze, no rales, no crackles CVS: RRR, normal S1, S2, no murmurs Abdo: soft, no masses, no hepatosplenomegaly, BS+, no rebound tenderness Extremities: no edema, pulses 2+ MSK: no joint deformities, normal ROM Neuro: no focal neuro deficits, moving all 4 extremities, CN2-12 intact. Strength 5/5 in all 4 extremities. No nystagmus. Psych: calm, cooperative, AAO x 3 LABORATORY DATA: Please see below. ASSESSMENT/PLAN: SVT: Continue with home labetalol 100 mg twice a day. Follows with cardiology in [place], [place]. Continue with telemetry. Check TSH, trop, BNP. AMS: It is possible the patient is experiencing a form of seizure possibly petit mal. Ordered EEG. Did not check prolactin as likely confounded by . She is alert and oriented this time, at baseline. Does not wish for CT of the head to be done. Has had extensive workup at [facility] neurology. Thank you for the consult. Hospitalist service will continue to follow. Vital Signs/I&O Vital Signs Date Time Temp Pulse Resp B/P (MAP) Pulse Ox O2 Delivery O2 Flow Rate FiO2 03/17/21 00:55 96.3 80 22 104/48 (66) 99 Room Air I&O- Last 24 Hours up to 6 AM 03/17/21 06:00 Output Total 600 ml Balance -600 ml Laboratory Data Labs 24H Laboratory Tests 2 03/16/21 21:42: Nucleated Red Blood Cells % (auto) 0.0 03/16/21 21:54: Serology Scanned Report Hepatitis B Testing CBC/BMP Laboratory Tests 03/16/21 21:42 Allergies Coded Allergies: No Known Allergies (Unverified , 05/24/18) Home Medications Scheduled Labetalol HCl (Labetalol HCl) 100 Mg Tablet, 50 MG PO BID, (Reported) Lysine (Lysine) 1,000 Mg Tablet, 1,000 MG PO QHS, (Reported) Omeprazole (Omeprazole) 20 Mg Capsule.dr, 20 MG PO QHS, (Reported) No.137/Iron/Folic Acd ( Vitamin Tablet) 1 Each Tablet, 1 TAB PO QHS, (Reported) Scheduled PRN Acetaminophen (Tylenol Extra Strength) 500 Mg Tablet, 1,000 MG PO Q6H PRN for PAIN, (Reported) Valacyclovir HCl (Valtrex) 500 Mg Tablet, 500 MG PO DAILY PRN for COLD SORES, (Reported) SAM ESCALANTE MD March 17, 2021 02:14
[2021-03-17 05:20] LABS: BASO # 0.1 10^3/uL (0.0-0.2); BASO % 0.4 % (0.0-1.0); EOS # 0.5 10^3/uL (0.0-0.5); EOS % 3.3 % (0.0-3.0); HEMATOCRIT 32.3 % (36.0-47.0); LYMPH # 1.7 10^3/uL (1.5-5.0); LYMPH % 11.9 % (24.0-44.0); MEAN CORPUSCULAR HEMOGLOBIN 32.9 pg (27.0-33.0); MEAN CORPUSCULAR HGB CONC 35.3 g/dl (32.0-36.5); MEAN CORPUSCULAR VOLUME 93.4 fl (80.0-96.0); MONO # 1.1 10^3/uL (0.0-0.8); MONO % 7.9 % (2.0-8.0); NEUTROPHILS # 10.6 10^3/uL (1.5-8.5); NEUTROPHILS % 75.4 % (36.0-66.0); PLATELET COUNT, AUTOMATED 173 10^3/uL (150-450); RED BLOOD COUNT 3.46 10^6/uL (4.00-5.40); WHITE BLOOD COUNT 14.1 10^3/uL (4.0-10.0)
[2021-03-17 05:22] LABS: HEMOGLOBIN 11.4 g/dl (12.0-15.5)
[2021-03-17] MEDS: KETOROLAC 30 MG/ML 1ML VIAL IV SCH ×3 (05:25→17:34)
[2021-03-17 05:48] LABS: BLOOD UREA NITROGEN 5 MG/DL (7-18); CALCIUM LEVEL 8.1 MG/DL (8.5-10.1); CARBON DIOXIDE LEVEL 23 MEQ/L (21-32); CHLORIDE LEVEL 110 MEQ/L (98-107); CREATININE FOR GFR 0.49 MG/DL (0.55-1.30); GLOMERULAR FILTRATION RATE > 60.0 (>60); GLUCOSE, FASTING 92 MG/DL (70-100); POTASSIUM SERUM 3.4 MEQ/L (3.5-5.1); SODIUM LEVEL 141 MEQ/L (136-145)
[2021-03-17 05:49] LABS: ALT/SGPT 41 U/L (12-78); BILIRUBIN,TOTAL 0.4 MG/DL (0.2-1.0); MAGNESIUM LEVEL 1.1 MG/DL (1.8-2.4); NT-PRO BNP 12 PG/ML (<125); TOTAL PROTEIN 4.9 GM/DL (6.4-8.2); TROPONIN I < 0.02 NG/ML (< 0.10)
[2021-03-17] MEDS ORDERED: [UNRECOGNIZED DRUG - CODE] PO (06:16)
[2021-03-17] MEDS ORDERED: ACET-897 PO (06:17)
[2021-03-17] MEDS ORDERED: OMEP1CAP73 PO (06:17)
[2021-03-17] MEDS ORDERED: LABE100T4 PO (06:17)
[2021-03-17] MEDS ORDERED: VALT500T PO (06:17)
[2021-03-17] MEDS ORDERED: POTASSIUM CHLORIDE 10 MEQ SR TABLET PO ONE (06:40)
[2021-03-17] MEDS: DOCUSATE SODIUM 100MG CAPSULE PO SCH ×2 (08:42→21:54)
[2021-03-17] MEDS: PRENATAL VITAMINS CHEWABLE TABLET PO SCH (08:42)
[2021-03-17] MEDS ORDERED: LABETALOL 100MG TAB PO SCH (09:00)
--- NOTE | 2021-03-17 14:34 | IPNPDOC ---
Text Note Date of Service The patient was seen on 03/17/21. NOTE Subjective: -No acute events since transfer to medicine -Telemetry showing sinus rhythm -Has no complaints, eager to get back to L&D to her baby - at bedside Interim events: Was transferred to medicine after syncope/becoming unresponsive post anesthesia natalia-delivery and was transferred to medicine for telemetry and closer monitoring. Patient reported that these syncopal-like unresponsive episodes have been happening since last July and has been worked up extensively at [facility] and had been referred to cardiology by neurology and is s/p a holter study that was unremarkable and has an appointment coming up in April with an asset protection specialist. On transfer to medicine, she has been doing well, without any complaints, HDS, afebrile and with a grossly nonfocal physical examination. PHYSICAL EXAMINATION: VITAL SIGNS: please see below General: NAD, comfortable HEENT: PERRLA, EOMI, sclerae clear Neck: supple, normal ROM, no JVD Respiratory: lungs CTAB, no wheeze, no rales, no crackles CVS: RRR, normal S1, S2, no murmurs Abdo: soft, no masses, BS+, no rebound tenderness Extremities: no edema, pulses 2+ MSK: no joint deformities, normal ROM Neuro: no focal neuro deficits, moving all 4 extremities, CN2-12 intact. Strength 5/5 in all 4 extremities. Psych: calm, cooperative, AAO x 3 LABORATORY DATA: Please see below. Mag is 1.1 (to replete to >2), K 3.4 was repleted ASSESSMENT/PLAN: 30 yo W with a history of supraventricular tachycardia and episodic syncopal episodes with ongoing outpatient cardiology workup who gave on 03/16 and syncopized and was transferred to medicine for close monitoring with no evidence of ACS, dysrhythmias or orthostasis and is now back to her baseline and now being transferred back to L&D. Syncope vs. unresponsive episode -Did not check prolactin as likely confounded by . Unlikely seizure, t lola if persisting would consider an EEG -Declined CT of the head -BP is well controlled -Continue with home labetalol 100 mg twice a day. To hold for SBP<100 and HR<70 -Follows with cardiology in [place], [place]. -TSH, trop, BNP wnl -Replete mag to level > 2 -repleted K Dispo: returning back to maternity. Will follow while there. VS,Fishbone, I+O VS, Fishbone, I+O Laboratory Tests 03/16/21 21:42 03/17/21 05:04 Vital Signs Date Time Temp Pulse Resp B/P (MAP) Pulse Ox O2 Delivery O2 Flow Rate FiO2 03/17/21 10:45 98.4 77 16 101/55 (70) 99 Room Air I&O- Last 24 Hours up to 6 AM 03/17/21 06:00 Intake Total 180 ml Output Total 800 ml Balance -620 ml DAVIAN GARCÍA MD March 17, 2021 14:34
[2021-03-17] MEDS ORDERED: MAG SULF 1GM/100ML (MAG RUN) 1 GM in IV 1 EA IV ONE (15:00)
[2021-03-17] MEDS ORDERED: PERCOCET PO (16:36)
[2021-03-17] MEDS ORDERED: IBUP80TA PO (16:36)
[2021-03-17] MEDS ORDERED: PILL CUTTER 1 EACH XX PRN (21:45)
[2021-03-17] MEDS: LABETALOL 100MG TAB PO SCH (21:54)
[2021-03-18] VITALS (7 sets, daily range): BP systolic 100–110; BP diastolic 57–72
[2021-03-18] MEDS ORDERED: ACETAMINOPHEN TAB 650MG DOSE (2X325MG) PO PRN (00:10)
[2021-03-18] MEDS: ACETAMINOPHEN 500 MG TAB PO PRN ×3 (00:26→15:41)
[2021-03-18] MEDS: IBUPROFEN 800 MG TAB PO SCH ×3 (02:17→18:37)
[2021-03-18] MEDS: LABETALOL 100MG TAB PO SCH ×2 (09:00→20:27)
[2021-03-18] MEDS ORDERED: LABETALOL 100MG TAB PO SCH (09:00)
[2021-03-18 09:50] LABS: HEMATOCRIT 33.8 % (36.0-47.0); HEMOGLOBIN 11.6 g/dl (12.0-15.5); MEAN CORPUSCULAR HEMOGLOBIN 32.7 pg (27.0-33.0); MEAN CORPUSCULAR HGB CONC 34.3 g/dl (32.0-36.5); MEAN CORPUSCULAR VOLUME 95.2 fl (80.0-96.0); PLATELET COUNT, AUTOMATED 193 10^3/uL (150-450); RED BLOOD COUNT 3.55 10^6/uL (4.00-5.40)
[2021-03-18] MEDS: DOCUSATE SODIUM 100MG CAPSULE PO SCH ×2 (09:55→20:25)
[2021-03-18] MEDS: PRENATAL VITAMINS CHEWABLE TABLET PO SCH (09:56)
[2021-03-18] MEDS ORDERED: SENNA 8.6 MG TAB (SENOKOT) PO PRN (10:20)
[2021-03-18 10:29] LABS: BLOOD UREA NITROGEN 6 MG/DL (7-18); CALCIUM LEVEL 7.8 MG/DL (8.5-10.1); CARBON DIOXIDE LEVEL 24 MEQ/L (21-32); CHLORIDE LEVEL 111 MEQ/L (98-107); CREATININE FOR GFR 0.62 MG/DL (0.55-1.30); GLOMERULAR FILTRATION RATE > 60.0 (>60); GLUCOSE, FASTING 91 MG/DL (70-100); MAGNESIUM LEVEL 1.9 MG/DL (1.8-2.4); POTASSIUM SERUM 4.1 MEQ/L (3.5-5.1); SODIUM LEVEL 142 MEQ/L (136-145)
--- NOTE | 2021-03-18 10:43 | IPNPDOC ---
Text Note Date of Service The patient was seen on 03/18/21. NOTE Subjective: -No acute events since transfer to back to L&D PHYSICAL EXAMINATION: VITAL SIGNS: please see below General: NAD, comfortable HEENT: PERRLA, EOMI, sclerae clear Neck: supple, normal ROM, no JVD Respiratory: lungs CTAB, no wheeze, no rales, no crackles CVS: RRR, normal S1, S2, no murmurs Abdo: soft, no masses, BS+, no rebound tenderness Extremities: no edema, pulses 2+ MSK: no joint deformities, normal ROM Neuro: no focal neuro deficits, moving all 4 extremities, CN2-12 intact. Strength 5/5 in all 4 extremities. Psych: calm, cooperative, AAO x 3 LABORATORY DATA: pending BMP and Mag ASSESSMENT/PLAN: 30 yo W with a history of supraventricular tachycardia and episodic syncopal episodes with ongoing outpatient cardiology workup who gave on 03/16 and syncopized and was transferred to medicine for close monitoring with no evidence of ACS, dysrhythmias or orthostasis and is now back to her baseline and now being transferred back to L&D. Syncope vs. unresponsive episode -Did not check prolactin as likely confounded by . Unlikely seizure, though if persisting would consider an EEG -Declined CT of the head -BP is well controlled -Continue with home labetalol 100 mg twice a day. To hold for SBP<100 and HR<70 -Follows with cardiology in [place], [place]. -TSH, trop, BNP wnl -Goal mag to level > 2, and K >3.5 Dispo: Medicine will sign off at this time VS,Joeybone, I+O VS, Fishbone, I+O Vital Signs Date Time Temp Pulse Resp B/P (MAP) Pulse Ox O2 Delivery O2 Flow Rate FiO2 03/18/21 05:51 98.3 83 16 100/60 (73) 97 Room Air I&O- Last 24 Hours up to 6 AM 03/18/21 06:00 Intake Total 1180 ml Output Total 550 ml Balance 630 ml DAVIAN GARCÍA MD March 18, 2021 08:58
[2021-03-19 02:00] VITALS: BP 116/56
[2021-03-19] MEDS: IBUPROFEN 800 MG TAB PO SCH ×2 (02:27→08:43)
[2021-03-19] MEDS: ACETAMINOPHEN 500 MG TAB PO PRN (03:25)
[2021-03-19 06:00] VITALS: BP 96/52
--- NOTE | 2021-03-19 07:26 | DS.PDOC ---
Discharge Summary General Date of Admission March 16, 2021 at 21:30 Date of Discharge February Discharge Summary PROCEDURES PERFORMED DURING STAY: Repeat section ADMITTING DIAGNOSES: 1. labor 2. Prior section 3. SVT history DISCHARGE DIAGNOSES: 1. Repeat section COMPLICATIONS/CHIEF COMPLAINT: Labor Check. HISTORY OF PRESENT ILLNESS: 30yo G2 now P2 admitted 03/16/2021 in labor. Repeat was planned due to close interconceptual spacing and history SVT. HOSPITAL COURSE: Adequate pain management. . Tolerating diet. Voiding and passing flatus. DISCHARGE MEDICATIONS: Please see below. ALLERGIES: Please see below. PHYSICAL EXAMINATION ON DISCHARGE: VITAL SIGNS: Please see below. GENERAL:No distress, alert, oriented HEENT: WNL NECK: Supple CARDIOVASCULAR EXAMINATION: HRR, normotensive RESPIRATORY EXAMINATION: Clear and unlabored ABDOMINAL EXAMINATION: Fundus firm, Dressing intact with old drainage EXTREMITIES: Equal strength and motion SKIN: Intact NEUROLOGICAL EXAMINATION: Grossly intact PSYCHIATRIC EXAMINATION: Appropriate LABORATORY DATA: Please see below. PROGNOSIS: Good ACTIVITY: As tolerated. DIET: As tolerated DISCHARGE PLAN: Home today DISPOSITION: Home with family. DISCHARGE INSTRUCTIONS: 1. Pelvic rest. Continue medications as ordered. Call with fever, nausea, vomiting, chills, foul lochia or wound exudate. Remove dressing day 5. Return to office 2wks and 6 wks. DISCHARGE CONDITION: Stable TIME SPENT ON DISCHARGE: Greater than 10 minutes. Vital Signs/I&Os Vital Signs Date Time Temp Pulse Resp B/P (MAP) Pulse Ox O2 Delivery O2 Flow Rate FiO2 03/19/21 06:00 97.1 84 16 96/52 (67) 98 Room Air I&O- Last 24 Hours up to 6 AM 03/19/21 06:00 Intake Total 400 ml Balance 400 ml Laboratory Data Labs 24H Laboratory Tests 2 03/18/21 09:31: Nucleated Red Blood Cells % (auto) 0.0, Anion Gap 7L, Glomerular Filtration Rate > 60.0, Calcium Level 7.8L, Magnesium Level 1.9 CBC/BMP Laboratory Tests 03/18/21 09:31 Discharge Medications Scheduled Ibuprofen (Ibuprofen) 800 Mg Tablet, 800 MG PO Q8H Labetalol HCl (Labetalol HCl) 100 Mg Tablet, 50 MG PO BID, (Reported) Lysine (Lysine) 1,000 Mg Tablet, 1,000 MG PO QHS, (Reported) Omeprazole (Omeprazole) 20 Mg Capsule.dr, 20 MG PO QHS, (Reported) No.137/Iron/Folic Acd ( Vitamin Tablet) 1 Each Tablet, 1 TAB PO QHS, (Reported) Scheduled PRN Acetaminophen (Tylenol Extra Strength) 500 Mg Tablet, 1,000 MG PO Q6H PRN for PAIN, (Reported) Oxycodone/Acetaminophen (Oxycodone-Acetaminophen 5-325) 1 Each Tablet, 1 TAB PO Q4H PRN for MILD/MODERATE PAIN (PS 1-7) Valacyclovir HCl (Valtrex) 500 Mg Tablet, 500 MG PO DAILY PRN for COLD SORES, (Reported) Allergies Coded Allergies: No Known Allergies (Unverified , 05/24/18) Pearl Gandhi CNM March 19, 2021 07:26
[2021-03-19 08:26] VITALS: BP 117/69
[2021-03-19] MEDS: PRENATAL VITAMINS CHEWABLE TABLET PO SCH (08:42)
[2021-03-19] MEDS: DOCUSATE SODIUM 100MG CAPSULE PO SCH (08:42)
[2021-03-19 08:43] VITALS: BP 117/69
[2021-03-19] MEDS: LABETALOL 100MG TAB PO SCH (08:43)
--- NOTE | 2021-03-23 16:06 | ROOPDOC ---
[facility] Report Of Operation Report of Operation DATE OF PROCEDURE: 03/16/2021 SURGEON: Patsy Cornell M.D. BILINGUAL MEDICAL RECEPTIONIST: Chantal Ortiz CNM ( essential for tissue retractions, exposure and delivery of ) PROCEDURE: Repeat section PREOPERATIVE DIAGNOSIS: 1. History of prior section 2. Active labor POSTOPERATIVE DIAGNOSIS: 1. History of prior section 2. Active labor ANESTHESIA: Spinal ESTIMATED BLOOD LOSS: 600 mL URINE OUTPUT: 100 mL INTRAVENOUS FLUIDS:1200 mL of lactated Ringer's solution PREOPERATIVE ANTIBIOTICS:. 2 g of Ancefand 500 azithromycin OPERATIVE FINDINGS: Liveborn male SPECIMENS: None DESCRIPTION OF PROCEDURE: After informed consent was obtained and written consent was reviewed. The patient was brought to the operating room where spinal anesthesia was placed. She was then placed in the supine position with a left lateral tilt. Leyva catheter was placed and to gravity. Patient was then prepped and draped in the normal sterile fashion. A timeout operating room was performed identifying the patient, procedure be performed as well as drug allergies. Anesthesia was tested and deemed to be adequate. Pfannenstiel skin incision was made and this was carried down to the underlying rectus fascia. The fascia was then scored and this incision was extended bilaterally. The fascia was then di ssected off the underlying rectus muscle superiorly and inferiorly. The rectus muscles were then in the midline. The peritoneum is then entered. Vesicouterine peritoneum was then tented and excised and a bladder flap was created. Mobius retractor was then placed. Next, a curvilinear incision was then made in the lower uterine segment. Amniotomy was performed, productive, clear fluid. The head was brought to the level of the incision atraumatically and delivered along the shoulders and corpus. The cord was clamped x2. The infant was brought over to the warmer with a good cry. Placenta was drained and delivered grossly intact. The uterus was cleared of all clots and debris and the uterine incision was then closed using 0 Vicryl in a running locking fashion followed by a second layer of 0 Vicryl in a running nonlocking fashion for imbrication. The abdomen suctioned. Surgical sites reinspected and noted be hemostatic. The retractor was then removed. The anterior peritoneum was then reapproximated with 3-0 Vicryl. The rectus muscles were reapproximated 3-0 Vicryl. The fascia was then closed using 0 Vicryl in a running nonlocking fashion. The subcutaneous tissues was then irrigated and suctioned. Subcutaneous tissue was reapproximated using 3-0 Vicryl. Several subdermal stitch is placed using 3-0 Vicryl and the skin was closed with 4-0 Monocryl and subcuticular fashion. This incision was then cleaned and dried and was dressed. The patient was then taken to recovery in stable condition. All counts were correct. My surgical services asst Chantal Ortiz played in an essential role during the operation. She assisted with tissue identification retraction, delivery of the , as well as wound closure. PATSY CORNELL MD. Mar 23, 2021 16:06
== END 2021-03-19 10:50 | disposition home or self-care (01) | DRG 540 ==
LOC: M LDO 21:14 → M LDI 21:30 → M PCU 03-17 00:56 → M OBS 03-17 10:30
PROVIDERS: ADMIT Advanced Practice Midwife; ATTEND Advanced Practice Midwife
PROC: 10D00Z1 Extraction of Products of Conception, Low, Open Approach (ICD-10-PCS; principal; 2021-03-16 21:49)
DX: O34.211 Maternal care for low transverse scar from previous cesarean delivery (principal); O60.14X0 Preterm labor third trimester with preterm delivery third trimester, not applicable or unspecified; O99.42 Diseases of the circulatory system complicating childbirth; I47.1 Supraventricular tachycardia; Z3A.35 35 weeks gestation of pregnancy; Z37.0 Single live birth; R41.82 Altered mental status, unspecified; R55 Syncope and collapse

== ENCOUNTER → 2022-10-24 | Outpatient (CLI) | payer OTHER ==
[~2022-10-24] MED LIST changes: +ACET-897 PO; -KETOROLAC 30 MG/ML 1ML VIAL IV SCH; +LABE100T6 PO; +OMEP1CAP73 PO; +VALT500T PO; +[UNRECOGNIZED DRUG - CODE] PO
[2022-10-24 15:40] LABS: HEMATOCRIT 35.9 % (36.0-47.0); HEMOGLOBIN 12.4 g/dl (12.0-15.5); MEAN CORPUSCULAR HEMOGLOBIN 32.2 pg (27.0-33.0); MEAN CORPUSCULAR HGB CONC 34.5 g/dl (32.0-36.5); MEAN CORPUSCULAR VOLUME 93.2 fl (80.0-96.0); PLATELET COUNT, AUTOMATED 228 10^3/uL (150-450); RED BLOOD COUNT 3.85 10^6/uL (4.00-5.40); WHITE BLOOD COUNT 6.8 10^3/uL (4.0-10.0)
[2022-10-24 16:37] LABS: HIV 1&2 SCREEN CENTAUR NEGATIVE (NEGATIVE)
[2022-10-24 16:44] LABS: HEPATITIS C VIRUS ABY INDEX 0.1 INDEX (<0.8)
[2022-10-24 16:54] LABS: GC DNA AMPLIFICATION NEGATIVE (NEGATIVE)
== END ==
LOC: M PLALAB 14:09
PROVIDERS: ATTEND Advanced Practice Midwife
DX: O34.219 Maternal care for unspecified type scar from previous cesarean delivery (principal); Z34.82 Encounter for supervision of other normal pregnancy, second trimester

== ENCOUNTER → 2022-12-18 | Outpatient (CLI) | payer OTHER | LOC: M WHC 10:55 | PROVIDERS: ATTEND Advanced Practice Midwife | DX: Z34.82 Encounter for supervision of other normal pregnancy, second trimester (principal); Z3A.22 22 weeks gestation of pregnancy ==

== ENCOUNTER → 2023-01-25 | Outpatient (CLI) | payer OTHER | LOC: M WHC 10:09 | PROVIDERS: ATTEND Advanced Practice Midwife | DX: Z36.2 Encounter for other antenatal screening follow-up (principal); Z3A.20 20 weeks gestation of pregnancy ==

== ENCOUNTER → 2023-01-25 | Outpatient (CLI) | payer OTHER ==
[2023-01-25 14:44] LABS: HEMATOCRIT 33.2 % (36.0-47.0); HEMOGLOBIN 11.1 g/dl (12.0-15.5); MEAN CORPUSCULAR HEMOGLOBIN 32.3 pg (27.0-33.0); MEAN CORPUSCULAR HGB CONC 33.4 g/dl (32.0-36.5); MEAN CORPUSCULAR VOLUME 96.5 fl (80.0-96.0); PLATELET COUNT, AUTOMATED 259 10^3/uL (150-450); RED BLOOD COUNT 3.44 10^6/uL (4.00-5.40); WHITE BLOOD COUNT 10.5 10^3/uL (4.0-10.0)
== END ==
LOC: M PLALAB 10:16
PROVIDERS: ATTEND Advanced Practice Midwife
DX: Z36.9 Encounter for antenatal screening, unspecified (principal)
CPT/HCPCS: 36415; 82950; 85027; 86850; 86900; 86901; J2790

== ENCOUNTER → 2023-03-22 | Outpatient (REF) | payer MEDICARE | LOC: M PLALAB 10:09 | PROVIDERS: ATTEND Advanced Practice Midwife | DX: Z36.85 Encounter for antenatal screening for Streptococcus B (principal) ==

== ENCOUNTER 2023-03-25 14:27 | Inpatient (IN) | payer MEDICARE, OTHER ==
[~2023-03-25] VITALS: Ht 157.5 cm; Wt 88.1 kg
[2023-03-25] VITALS (8 sets, daily range): BP systolic 100–136; BP diastolic 58–76; TEMP 97; O2SAT 97–99
[2023-03-25] MEDS: SLF 3 ML SYR IV SCH ×2 (14:00→21:58)
[2023-03-25] MEDS ORDERED: OXYTOCIN DRIP 30 UNITS in IV 1 EA IV PRN (14:55)
[2023-03-25] MEDS ORDERED: TRANEXAMIC ACID INJection 1,000 MG in NS 100 ML IV PRN (14:55)
[2023-03-25] MEDS ORDERED: METHYLERGONOVINE MALEATE 0.2MG/ML 1ML VIAL IM PRN (14:55)
[2023-03-25] MEDS ORDERED: ceFAZolin SOD 2 GM in IV 1 EA IV ONE (15:00)
[2023-03-25] MEDS ORDERED: AZITHROMYCIN INJ 500 MG, VIAL MATE ADAPTER 1 EACH in NS 250 ML IV ONE (15:00)
[2023-03-25] MEDS ORDERED: BICITRA 30ML SOLN UDC PO ONE (15:00)
[2023-03-25] MEDS ORDERED: LR 1,000 ML IV SCH ×2 (15:05→16:45)
[2023-03-25] MEDS ORDERED: LACTATED RINGER'S 1000 ML IV ONE (15:05)
[2023-03-25] MEDS ORDERED: HOME MED LIST COMPLETE! XX SCH (15:15)
[2023-03-25 15:20] LABS: HEMATOCRIT 37.1 % (36.0-47.0); HEMOGLOBIN 13.4 g/dl (12.0-15.5); MEAN CORPUSCULAR HEMOGLOBIN 32.9 pg (27.0-33.0); MEAN CORPUSCULAR HGB CONC 36.1 g/dl (32.0-36.5); MEAN CORPUSCULAR VOLUME 91.2 fl (80.0-96.0); PLATELET COUNT, AUTOMATED 205 10^3/uL (150-450); RED BLOOD COUNT 4.07 10^6/uL (4.00-5.40); WHITE BLOOD COUNT 10.1 10^3/uL (4.0-10.0)
[2023-03-25] MEDS ORDERED: MORPHINE PRES-FREE INJ 10 MG/10 ML VIAL As Ordered ONE (15:50)
[2023-03-25] MEDS ORDERED: ONDANSETRON 4MG 2ML VIAL As Ordered ONE ×2 (15:51→17:08)
[2023-03-25] MEDS ORDERED: OXYTOCIN INJ 10UNITS/ML 1ML VIAL As Ordered ONE (15:53)
[2023-03-25] MEDS ORDERED: PERCOCET 5MG/325MG TAB PO PRN (16:30)
[2023-03-25] MEDS ORDERED: SIMETHICONE 80MG CHEW TAB PO PRN (16:30)
[2023-03-25] MEDS ORDERED: RHOGAM 300MCG (1500IU) INJ IM SCH (16:30)
[2023-03-25] MEDS ORDERED: NALOXONE INJ 0.4MG/1ML VIAL IV PRN ×2 (16:45)
[2023-03-25] MEDS ORDERED: **NOTE PATIENT COMMENT** MISC XX SCH (16:45)
[2023-03-25] MEDS ORDERED: METOCLOPRAMIDE INJ 10MG/2ML VIAL IV PRN (16:45)
[2023-03-25] MEDS ORDERED: fentaNYL 100 MCG/2 ML INJECTION IV PRN (16:45)
[2023-03-25] MEDS ORDERED: diphenhydrAMINE 50MG/ML VIAL IV PRN (16:45)
[2023-03-25 16:54] LABS: CORD GAS ABE A -4.5; CORD GAS HCO3 A 22.7 MMOL/L; CORD GAS O2 SAT A 64.5 %; CORD GAS PH A 7.275 UNITS; CORD GAS PO2 A 26.9 mmHg; CORD GAS TCO2 A 24.2 MMOL/L
[2023-03-25 16:55] LABS: CORD GAS ABE V -2.7; CORD GAS HCO3 V 21.8 MMOL/L; CORD GAS O2 SAT V 75.2 %; CORD GAS PCO2 V 37.2 mmHg; CORD GAS PH V 7.386 UNITS; CORD GAS PO2 V 29.5 mmHg; CORD GAS SBC V 21.7 MMOL/L
[2023-03-25] MEDS ORDERED: ePHEDrine SULFATE 25 MG/5 ML(5MG/ML) SYRINGE As Ordered ONE (17:07)
[2023-03-25] MEDS ORDERED: KETOROLAC 60MG 2ML VIAL As Ordered ONE (17:07)
[2023-03-25] MEDS ORDERED: PHENYLephrine 500MCG 5ML (100MCG/ML) SYRINGE As Ordered ONE (17:07)
[2023-03-25] MEDS ORDERED: OXYTOCIN DRIP 30 UNITS in IV 1 EA IV SCH (18:40)
[2023-03-25] MEDS ORDERED: OXYTOCIN 30UNITS IN 0.9% NaCl 500ML IV BAG As Ordered ONE (18:42)
[2023-03-25] MEDS: DOCUSATE SODIUM 100MG CAPSULE PO SCH (21:06)
[2023-03-25] MEDS ORDERED: ACETAMINOPHEN TAB 650MG DOSE (2X325MG) PO PRN (21:25)
[2023-03-25] MEDS: KETOROLAC 30 MG/ML 1ML VIAL IV SCH (23:08)
[2023-03-26] MEDS: ONDANSETRON 4MG 2ML VIAL IV PRN ×3 (00:06→11:18)
[2023-03-26 02:00] VITALS: BP 100/58; O2SAT 99
[2023-03-26] MEDS: KETOROLAC 30 MG/ML 1ML VIAL IV SCH ×2 (04:27→10:00)
[2023-03-26 06:00] VITALS: BP 100/55; O2SAT 96
[2023-03-26] MEDS: SLF 3 ML SYR IV SCH (06:00)
[2023-03-26 06:46] LABS: HEMATOCRIT 31.9 % (36.0-47.0); HEMOGLOBIN 11.2 g/dl (12.0-15.5); MEAN CORPUSCULAR HEMOGLOBIN 32.3 pg (27.0-33.0); MEAN CORPUSCULAR HGB CONC 35.1 g/dl (32.0-36.5); MEAN CORPUSCULAR VOLUME 91.9 fl (80.0-96.0); PLATELET COUNT, AUTOMATED 205 10^3/uL (150-450); RED BLOOD COUNT 3.47 10^6/uL (4.00-5.40); WHITE BLOOD COUNT 10.8 10^3/uL (4.0-10.0)
[2023-03-26] MEDS: PRENATAL VITAMINS CHEWABLE TABLET PO SCH (09:58)
[2023-03-26] MEDS: DOCUSATE SODIUM 100MG CAPSULE PO SCH ×2 (09:58→19:44)
[2023-03-26 10:00] VITALS: BP 100/56; O2SAT 96
[2023-03-26] MEDS ORDERED: OMEP-173 PO (10:38)
[2023-03-26] MEDS ORDERED: VALA500T5 PO (10:38)
[2023-03-26 18:00] VITALS: BP 116/65; O2SAT 99
[2023-03-26] MEDS: IBUPROFEN 800 MG TAB PO SCH (18:05)
[2023-03-26 22:00] VITALS: BP 97/55; O2SAT 96
[2023-03-27 02:00] VITALS: BP 101/53; O2SAT 98
[2023-03-27] MEDS: IBUPROFEN 800 MG TAB PO SCH ×2 (03:00→10:56)
[2023-03-27 06:00] VITALS: BP 104/69; O2SAT 98
[2023-03-27] MEDS ORDERED: MEASLES,MUMPS,RUBELLA VACCINE INJ (MMR-II) SC.IMMUN ONE (09:00)
[2023-03-27] MEDS: PRENATAL VITAMINS CHEWABLE TABLET PO SCH (09:00)
[2023-03-27] MEDS: DOCUSATE SODIUM 100MG CAPSULE PO SCH (09:00)
[2023-03-27 10:00] VITALS: BP 114/52; O2SAT 97
[2023-03-27] MEDS ORDERED: IBUP80TA PO (10:01)
== END 2023-03-27 12:15 | disposition home or self-care (01) | DRG 788 ==
LOC: M LDO 14:27 → M LDI 14:48 → M OBS 19:36
PROVIDERS: ADMIT Obstetrics & Gynecology; ATTEND Obstetrics & Gynecology
PROC: 10D00Z1 Extraction of Products of Conception, Low, Open Approach (ICD-10-PCS; principal; 2023-03-25 16:00)
DX: O34.211 Maternal care for low transverse scar from previous cesarean delivery (principal); Z37.0 Single live birth; Z3A.36 36 weeks gestation of pregnancy; O69.82X0 Labor and delivery complicated by other cord entanglement, without compression, not applicable or unspecified

== ENCOUNTER → 2023-08-08 | Outpatient (REF) | payer MEDICARE ==
[~2023-08-08] MED LIST changes: +OMEP-173 PO; +VALA500T5 PO
== END ==
LOC: M PLALAB 15:49
PROVIDERS: ATTEND Advanced Practice Midwife
DX: Z12.4 Encounter for screening for malignant neoplasm of cervix (principal)
CPT/HCPCS: 87624; G0123